=== PATIENT | female | born 1950 | race Caucasian/White ===

== ENCOUNTER 2020-09-20 09:22 | Outpatient (CLI) | payer MEDICARE, SELFPAY ==
--- NOTE | ~2020-09-20 | MM_ITS ---
EXAMINATION: MM screening [facility] BI w jackie HISTORY: Screening mammogram TECHNIQUE: Craniocaudal and mediolateral oblique 3-D tomosynthesis images were obtained and synthetic 2-D images were generated. CAD analysis was submitted and interpreted. COMPARISON: 09/26/2014, 08/22/2011 BREAST PARENCHYMAL COMPOSITION: There are scattered areas of fibroglandular density. FINDINGS: An intramammary lymph node is noted in the outer right breast. There is no evidence of susp icious mass, calcification, or architectural distortion to suggest malignancy in either breast. There has been no suspicious interval change. IMPRESSION: 1. No mammographic evidence of malignancy. 2. Recommend routine screening mammography in one year. BI-RADS Category 2: Benign finding(s). Reviewed, dictated and finalized at location A.
== END 2020-09-20 09:23 | disposition home or self-care (01) ==
LOC: ANHIMG 09:27
PROVIDERS: PCP Physician Assistant; Visit Provider Physician Assistant
DX: Z12.31 Encounter for screening mammogram for malignant neoplasm of breast (principal)
CPT/HCPCS: 77063; 77067

== ENCOUNTER 2023-12-27 11:55 | Outpatient (CLI) | payer MEDICARE, SELFPAY ==
--- NOTE | ~2023-12-27 | XR_ITS ---
Left Knee Technique: AP, lateral, and sunrise views were obtained. Clinical History: Pain Findings: No fracture or dislocation is seen. There is advanced tricompartment osteoarthritis, joint space narrowing and osteophyte formation. There is generalized osteopenia.. Soft tissues are unremark able. No joint effusion is seen. Impression: Advanced tricompartmental osteoarthritis. Generalized osteopenia. Reviewed, dictated and finalized at location . Impression: Advanced tricompartmental osteoarthritis. Generalized osteopenia.
== END 2023-12-27 11:56 | disposition home or self-care (01) ==
PROVIDERS: PCP Physician Assistant; Visit Provider Physician Assistant
DX: M17.12 Unilateral primary osteoarthritis, left knee (principal); M85.88 Other specified disorders of bone density and structure, other site; W19.XXXD Unspecified fall, subsequent encounter
CPT/HCPCS: 73562

== ENCOUNTER 2024-04-06 17:45 | Observation (INO) | payer MEDICARE, SELFPAY ==
[2024-04-06] VITALS (10 sets, daily range): BP systolic 86–113; BP diastolic 53–90; PULSE 71–89; RESP 19–44; O2SAT 97–100
--- NOTE | ~2024-04-06 | CT_ITS ---
EXAMINATION: CTA brain carotid DATE: 04/06/2024 19:13 INDICATION: Altered mental status. Slurred speech. TECHNIQUE: Computed tomographic angiography (CTA) of the head was performed without and with 100 mL O mnipaque-350 intravenous contrast. CTA of the neck was performed with intravenous contrast. Automated exposure control and iterative reconstruction technique were employed. The dose-length product was 1 511.15 mGy-cm. Maximum intensity projection and volume rendered 3D-reconstructions were created by ha almaguer technologist on a separate workstation. COMPARISON: Head CT 12/23/2012 FINDINGS: HEAD CTA: There are old infarcts involving the bilateral basal ganglia and left thalamus. There are s cattered areas of low attenuation in the cerebral white matter. There is no intracranial hemorrhage, acute infarction, or abnormal intracranial mass lesion. There is an old infarct in right cerebellum. The ventricles are normal in size. There are likely changes of ocular lens replacement surgeries. The paranasal sinuses are clear. The mastoid air cells are normal. Left vertebral artery is dominant. Th ere is no significant stenosis of basilar artery or the posterior cerebral arteries. There is no sign ificant stenosis of the intracranial internal carotid arteries or anterior or middle cerebral arterie s. Anterior communicating artery is normal. The posterior communicating arteries are normal. There is no aneurysm. NECK CTA: The lung apices demonstrate emphysema. There is mild scarring at the lung apices. There are no pathologically enlarged lymph nodes. There is no significant stenosis of the vertebral arteries. There is plaque in the proximal internal carotid arteries. There is 0% stenosis of the proximal right internal carotid artery relative to normal distal artery lumen diameter (NASCET criteria). There is 0% stenosis of the proximal left internal carotid artery relative to normal distal artery lumen diame ter. There is severe cervical spondylosis. IMPRESSION: 1. 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 2. Extensive nonspecific cerebral white matter disease, which likely represents chronic small vessel ischemic disease. 3. No aneurysm or significant intracranial arterial stenosis. 4. 0% stenosis of the proximal internal carotid arteries relative to normal distal artery lumen diame ters (NASCET criteria). Reviewed, dictated and finalized at location A. IMPRESSION: 1. 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 2. Extensive nonspecific cerebral white matter disease, which likely represents chronic small vessel ischemic disease. 3. No aneurysm or significant intracranial arterial stenosis. 4. 0% stenosis of the proximal internal carotid arteries relative to normal dis gricelda artery lumen diameters (NASCET criteria).
--- NOTE | ~2024-04-06 | MR_ITS ---
EXAMINATION: MR brain/brain stem wo/w con DATE: 04/07/2024 07:59 INDICATION: Altered mental status. Right upper and lower extremity drift. TECHNIQUE: Magnetic resonance imaging (MRI) of the brain and brainstem was performed without and with 10 mL Multihance intravenous contrast. Sequences included sagittal and axial T1-weighted SE, axial d iffusion-weighted FS SE, axial 3D SWAN, axial T2-weighted FLAIR, and axial T2-weighted FSE. Postcontr ast axial and coronal T1-weighted SE was obtained. Apparent diffusion coefficient (ADC) maps were cre ated. COMPARISON: Head CT and CT angiogram dated 04/06/2024 FINDINGS: There are no areas of restricted diffusion to suggest acute infarction. There are small old lacunar i nfarcts at the left thalamus, bilateral basal ganglia, periventricular left parietal occipital region and right cerebellar hemisphere. No acute intracranial hemorrhage or abnormal intracranial mass lesi on. There is a punctate focus of susceptibility artifact at the left thalamus likely sequela of chron ic microhemorrhage. There are scattered areas of nonspecific increased T2-weighted signal intensity i n the cerebral white matter, predominantly involving the deep and periventricular white matter. There are no intraparenchymal signal abnormalities seen on the other pulse sequences. The ventricles are s ymmetric and normal in size. There are no abnormal extra-axial fluid collections. Flow voids are seen in the cerebral arteries on the T2-weighted sequences consistent with their expected patency. Change s of bilateral intraocular lens replacement. Visualized orbits and soft tissues are unremarkable. Min imal bilateral mastoid effusions. There are no areas of abnormal enhancement on the post contrast lester ges. IMPRESSION: 1. There are a few scattered small old lacunar infarcts including at the left thalamus, bilateral bas al ganglia, left proximal pole region and right cerebellar hemisphere. No acute intracranial process or abnormally enhancing brain lesions. 2. Extensive scattered nonspecific periventricular predominant white matter T2 hyperintensity consist ent with chronic small vessel ischemic disease. Reviewed, dictated and finalized at location A. IMPRESSION: 1. There are a few scattered small old lacunar infarcts including at the left t halamus, bilateral basal ganglia, left proximal pole region and right cerebella r hemisphere. No acute intracranial process or abnormally enhancing brain lesio ns. 2. Extensive scattered nonspecific periventricular predominant white matter T2 hyperintensity consistent with chronic small vessel ischemic disease.
--- NOTE | ~2024-04-06 | XR_ITS ---
EXAMINATION: XR chest 1V portable DATE: 04/06/2024 19:03 INDICATION: Cough. Confusion. TECHNIQUE: A single frontal view of the chest was obtained. COMPARISON: None. FINDINGS: There are lucencies and interstitial opacities in the lungs, consistent with emphysema. No pleural effusion or pneumothorax. The heart size is normal. IMPRESSION: 1. Emphysema. Reviewed, dictated and finalized at location A. IMPRESSION: 1. Emphysema.
--- NOTE | 2024-04-06 17:59 | ECG_ITS ---
Test Date: 2024-04-06 17:56:56 Measurements Intervals Orange Rate: 85 P: 52 RI: 154 QRS: 62 QRSD: 74 T: 50 QT: 331 QTc: 394 Interpretive Statements SINUS RHYTHM No previous ECG available for comparison Electronically Signed On 04-07-2024 16:16:27 CDT by Иван Manning M.D.
--- NOTE | 2024-04-06 18:19 | ED.AMS ---
HPI - Altered Mental Status General Chief Complaint: Altered Mental Status <HARLEY Walters Last Filed: 04/07/24 01:12> Stated Complaint: AMS, expressive aphasia <HARLEY Walters Last Filed: 04/07/24 01:12> Time Seen by Provider: 04/06/24 18:18 <HARLEY Walters Last Filed: 04/07/24 01:12> Source: patient <HARLEY Walters Last Filed: 04/07/24 01:12> Mode of arrival: ambulatory <HARLEY Walters Last Filed: 04/07/24 01:12> Limitations: no limitations <HARLEY Walters Filed: 04/07/24 01:12> History of Present Illness HPI narrative: This is a 74-year-old female who presents to the ED via EMS for chief complaint of altered mental status and disturbed speech. Beginning approximately 2 hours prior to arrival. Patient's family is here and states that they left for work around 3:00 p.m. today. States that a different family member called her about an hour and half later and thought that her speech was slurred and patient seemed disoriented. On arrival she is alert oriented x2 is normally A&O x4. Family states that she seems confused and unable to answer some other questions like she normally would. They have not noticed specific facial droop but feels that her speech has slurred and she has aphasia. Patient unable to give meaningful history <HARLEY Walters Last Filed: 04/07/24 01:12> Related Data Home Medications: Home Medications Medication Instructions Recorded Confirmed No Home Medications 04/06/24 04/06/24 <HARLEY Walters Last Filed: 04/07/24 01:12> Allergies/Adverse Reactions: Allergies Allergy/AdvReac Type Severity Reaction Status Date / Time No Known Allergies Allergy Unverified 12/23/12 00:37 <HARLEY Walters Last Filed: 04/07/24 01:12> Review of Systems Review of Systems: ROS unobtainable: Yes unobtainable due to mental status <HARLEY Walters Filed: 04/07/24 01:12> [facility] Family History Family History: Family History (Updated 04/06/24 @ 23:46 by Nancy Nichols RN) Father Heart attack <HARLEY Walters Filed: 04/07/24 01:12> Social History Social History: Social History Smoking packs per day: 0.5 Smoking cigarettes per day: 10.0 Years smoked: 54 Smoking pack-years: 27.00 Smoking status: Current every day smoker Alcohol intake: former Substance use: never Do You Feel Safe in your Home?: No Lack of Transportation: No Lack of Food: Never True Current Housing: I Have Housing Concerned About Future Housing: No Difficulty Paying Gas/Electric Bills: No Difficulty Paying for Meds: No Currently Unemployed: No Education: High School Diploma/GED Difficulty w/ Childcare or Family Care: No Spiritual care concerns: No <HARLEY Walters Filed: 04/07/24 01:12> Exam Narrative: GENERAL: Well-appearing, well-nourished, and in no acute distress. HEAD: Normocephalic, atraumatic. EYES: PERRLA and EOMI. ENT: Nares clear, no rhinorrhea or epistaxis. Mucous membranes moist. Oropharynx without tonsillar hypertrophy exudate or other lesions. NECK: Supple. No adenopathy or masses. CHEST: No respiratory distress. Clear to auscultation. No wheezes rales or rhonchi. 99% room air. breath sounds shallow with prolonged expiratory phase. HEART: Regular rate and rhythm. No murmur heard. Normal peripheral pulses. ABDOMEN: Soft, nontender, nondistended, normal active bowel sounds. MSK: Normal range of motion. No edema. SKIN: Warm, dry, no rash. NEURO: Alert and oriented x 1-2. Oriented to self and place. Pronator drift detected in the right upper and right lower extremities. No facial droop. Minimal dysarthria but patient does have expressive aphasia. Unable to participate with [id number] or [id number]. Insulator Tester strength equal bilaterally. No nystagmus PSYCH: Normal mood and affect. <HARLEY Walters
[2024-04-06 18:29] LABS: Basophils Absolute Auto 0.1 K/mm3 (0.0-0.1); Basophils Percent Auto 1.1 % (0.2-1.2); Eosinophils Absolute Auto 0.1 K/mm3 (0-0.3); Eosinophils Percent Auto 1.6 % (0-4.4); Hematocrit 36.2 % (37.0-47.0); Hemoglobin 11.8 g/dL (12.0-15.0); Immature Granulocyte Absolute 0.01 K/mm3 (0.00-0.031); Immature Granulocyte Percent A 0.2 % (0-0.5); Lymphocytes Absolute Auto 1.93 K/mm3 (0.9-3.2); Lymphocytes Percent Auto 34.2 % (18.3-44.2); Mean Corpuscular HGB Conc 32.6 g/dl (32-36); Mean Corpuscular Hemoglobin 33.4 pg (26-34); Mean Corpuscular Volume 102.5 fl (80-100); Mean Platelet Volume 10.8 fl (7.4-10.4); Monocytes Absolute Auto 0.5 K/mm3 (0.1-0.6); Monocytes Percent Auto 8.8 % (2.6-8.5); Neutrophils Absolute Auto 3.1 K/mm3 (1.3-6.7); Neutrophils Percent Auto 54.1 % (45.5-73.1); Platelet Count Result 216 k/mm3 (150-375); Red Blood Count 3.53 M/mm3 (4.2-5.4); Red Cell Distribution Width 13.1 % (11.5-14.5); White Blood Count 5.7 K/mm3 (4.5-10.0)
[2024-04-06 18:40] LABS: Alanine Aminotransferase 8 U/L (6-35); Albumin Level 3.5 g/dL (3.5-5.1); Alkaline Phosphatase 86 U/L (38-126); Anion Gap 3 mmol/L (4-12); Aspartate Amino Transferase 21 U/L (14-36); Bilirubin,Total 0.5 mg/dL (0.2-1.3); Blood Urea Nitrogen 8 mg/dL (7-17); Calcium 8.4 mg/dL (8.4-10.2); Carbon Dioxide 29 mmol/L (22-30); Chloride 105 mmol/L (98-107); Estimated CRCL calculation 38 ml/min; Estimated Glomerular Filt Rate > 60; Glucose 86 mg/dL (65-110); INR 1.1; Partial Thromboplastin Time 26.8 Seconds (22.3-36.8); Prothrombin Time 14.5 Seconds (11.1-14.7); Sodium 137 mmol/L (137-145)
[2024-04-06 19:14] LABS: Add Urine Microscopic? YES; Appearance Urine Cloudy (Clear); Bacteria Urine 1+ /hpf; Bilirubin Urine Negative (Negative); Blood Urine Negative (Negative); Color Urine Yellow (Yellow); Glucose Urine UA Negative (Negative); Ketones Urine Trace mg/dL (Negative); Leukocyte Esterase Ur 3+ LEU/UL (Negative); Need Manual Microscopic Reviewed; Nitrate Urine Negative (Negative); Non Pathogenic Casts 0-2; Protein Urine Negative (Negative); RBC Urine 0-2 /hpf (0-2); Specific Grav Ur 1.019 (1.001-1.035); Squamous Epithelial Cell Urine None Seen /hpf (Few); WBC Urine >100 /hpf (0-3)
--- NOTE | 2024-04-06 19:46 | PCRCNOTE ---
RT to room, PA speaking to pt/family. RT asked if abg is still wanted, PA said to hold off for now.
[2024-04-06] MEDS: IPRATROPIUM BR 0.02% INH SOLN 0.5 MG/2.5 ML VIAL 1 MG INHALATION (20:15)
[2024-04-06] MEDS: ALBUTEROL SULFATE NEB 2.5 MG/3 ML INH 10 MG INHALATION (20:15)
[2024-04-06 20:52] LABS: Alveolar/Arterial O2 Gradient 37.3 mmHg; Base Excess ABG -2.1 mEq/l (+/-2.0); Fractional Inspired Oxygen 21 %; HCO3 ABG 22.1 mEq/l (22.0-26.0); Oxygen Content ABG 14.8 %vol (16.0-22.0); Oxygen Saturation ABG 94.3 % (95.0-100.0); Oxyhemoglobin 93.1 % THb (90.0-100.0); PCO2 ABG 35.7 mmHg (35.0-45.0); PO2 ABG 69.7 mmHg (80.0-100.0); PO2 FiO2 Ratio Arterial Blood 3.32 %; Total Hemoglobin 11.3 g/dL (12.0-18.0)
--- NOTE | 2024-04-06 20:52 | PM.IMHP ---
H&P: HPI History of Present Illness Date/Time: 04/06/24 20:52 Chief Complaint: right upper extremity weakness Narrative: This is a 74-year-old female with past medical history Significant for strokes, was brought to the emergency room for evaluation due to altered mental status limb weakness abnormal speech. preliminary workup here in emergency room showed old strokes it was believed that patient was undergoing a stroke and stroke team was consulted advised for tPA however it was later found out that patient has had symptoms since earlier in the evening of the day before so he had been at least 18 hours since initial symptoms. It was decided against tPA. A urinalysis showed numerous WBCs present. Patient has been admitted for further evaluation management and treatment. XAMINATION: XR chest 1V portable DATE: 04/06/2024 19:03 INDICATION: Cough. Confusion. TECHNIQUE: A single frontal view of the chest was obtained. COMPARISON: None. FINDINGS: There are lucencies and interstitial opacities in the lungs, consistent with emphysema. No pleural effusion or pneumothorax. The heart size is normal. IMPRESSION: 1. Emphysema. EXAMINATION: CTA brain carotid DATE: 04/06/2024 19:13 INDICATION: Altered mental status. Slurred speech. TECHNIQUE: Computed tomographic angiography (CTA) of the head was performed without and with 100 mL Omnipaque-350 intravenous contrast. CTA of the neck was performed with intravenous contrast. Automated exposure control and iterative reconstruction technique were employed. The dose-length product was 1511.15 mGy-cm. Maximum intensity projection and volume rendered 3D-reconstructions were created by the technologist on a separate workstation. COMPARISON: Head CT 12/23/2012 FINDINGS: HEAD CTA: There are old infarcts involving the bilateral basal ganglia and left thalamus. There are scattered areas of low attenuation in the cerebral white matter. There is no intracranial hemorrhage, acute infarction, or abnormal intracranial mass lesion. There is an old infarct in right cerebellum. The ventricles are normal in size. There are likely changes of ocular lens replacement surgeries. The paranasal sinuses are clear. The mastoid air cells are normal. Left vertebral artery is dominant. There is no significant stenosis of basilar artery or the posterior cerebral arteries. There is no significant stenosis of the intracranial internal carotid arteries or anterior or middle cerebral arteries. Anterior communicating artery is normal. The posterior communicating arteries are normal. There is no aneurysm. NECK CTA: The lung apices demonstrate emphysema. There is mild scarring at the lung apices. There are no pathologically enlarged lymph nodes. There is no significant stenosis of the vertebral arteries. There is plaque in the proximal internal carotid arteries. There is 0% stenosis of the proximal right internal carotid artery relative to normal distal artery lumen diameter (NASCET criteria). There is 0% stenosis of the proximal left internal carotid artery relative to normal distal artery lumen diameter. There is severe cervical spondylosis. IMPRESSION: 1. 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 2. Extensive nonspecific cerebral white matter disease, which likely represents chronic small vessel ischemic disease. 3. No aneurysm or significant intracranial arterial stenosis. 4. 0% stenosis of the proximal internal carotid arteries relative to normal distal artery lumen diameters (NASCET criteria). Review of Systems Review of Systems: altered mental status ROS unobtainable: Yes other ( patient has no recollection of event) [facility] Social History Social History Smoking packs per day: 0.5 Smoking cigarettes per day: 10.0 Years smoked: 54 Smoking pack-years: 27.00 Smoking status: Current every day smoker Alcohol intake: never Substance use: never Do You Fe
[2024-04-06 20:53] LABS: Device ROOM AIR; Site Drawn RIGHT BRACHIAL
[2024-04-06 21:13] LABS: NT Pro B Type Natriuretic Pept 554 pg/mL (19.9-100)
[2024-04-06] MEDS: ASPIRIN 81 MG CHEWABLE TABLET PO (22:03)
[2024-04-06] MEDS: SODIUM CHLORIDE 0.9% IV 1,000 ML 999 ML IV CONT (22:03)
[2024-04-06] MEDS: ATORVASTATIN 40 MG TABLET PO (22:03)
[2024-04-06] MEDS: CLOPIDOGREL BISULFATE 300 MG TABLET PO (22:03)
--- NOTE | 2024-04-06 23:20 | ADMGEN ---
This patient, Leisa Anderson, was admitted to Medical Room 346-01 @ 2300. Patient/family oriented to hospital policies and general routines including ID bracelet, bed and alarms, visiting hours, pain management, procedures, bathroom and other care routines, personal items, smoking policy, room service/diet, and visiting hours. Information on how to activate the Rapid Response Team has been discussed. Patient/Family are encouraged to report perceived risks to care and to ask questions if they do not understand what they are told or what they should do.
[2024-04-06] MEDS: SODIUM CHLORIDE 0.9% IV 1,000 ML 125 ML IV CONT (23:40)
[2024-04-07] VITALS (10 sets, daily range): BP systolic 96–117; BP diastolic 40–84; PULSE 77–90; RESP 18–32; TEMP 36.2–36.8; O2SAT 98–100
--- NOTE | 2024-04-07 | ECHO_ITS ---
Patient Info Name: Leisa Anderson Age: 74 years : 1950 Gender: Female Ht: 61 in Wt: 125 lbs BSA: 1.57 m2 HR: 88 bpm BP: 98 / 65 mmHg Heart Rhythm: Sinus Rhythm Technical Quality: Good Exam Date: 04/07/2024 8:52 AM Exam Location: Echo Lab Patient Status: Inpatient Admit Date: 04/06/2024 Staff Ordering Physician: Kenneth Jones MD Stripper Latex: Yoshi Ford RDCS Attending Provider: Christopher Balderrama MD Exam Type: CA echo doppler w bubble study Study Info Indications - stroke Complete two-dimensional, color flow and Doppler transthoracic echocardiogram is performed with agitated saline. Summary 1. Left ventricular systolic function is normal, estimated at 55-60%. 2. The left ventricular diastolic function is abnormal. 3. Intact interatrial septum visualized by agitated saline imaging. 4. There is trace tricuspid valve regurgitation. 5. No pulmonary hypertension, estimated pulmonary arterial systolic pressure is 27 mmHg. Left Ventricle Left ventricular chamber dimension is normal. Left ventricular systolic function is normal, estimated at 55-60%. There is no increased left ventricular wall thickness. Left ventricular septal wall motion is normal. The left ventricular diastolic function is abnormal. Right Ventricle Right ventricular chamber dimension is normal. Right ventricular systolic function is normal. Left Atria Left atrial chamber dimension is normal. Right Atria Right atrial chamber dimension is normal. Atrial Septum Intact interatrial septum visualized by agitated saline imaging. Aortic Valve The aortic valve is trileaflet. There is no aortic valve sclerosis. There is no aortic valve stenosis. There is no aortic valve regurgitation. Pulmonic Valve The pulmonic valve is normal. There is no pulmonic valve stenosis. There is no pulmonic regurgitation. Mitral Valve The mitral valve has normal leaflets. There is no mitral valve stenosis. There is no mitral valve regurgitation. Tricuspid Valve The tricuspid valve leaflets are normal. There is no significant tricuspid valve stenosis. There is trace tricuspid valve regurgitation. No pulmonary hypertension, estimated pulmonary arterial systolic pressure is 27 mmHg. Pericardium/Pleural The pericardium appears normal. There is no pericardial effusion. Inferior Vena Cava Dilated inferior vena cava with <50% collapse upon inspiration consistent with elevated right atrial pressure, 15 mmHg. Aorta The aortic root size at the sinus of Valsalva is normal. The prox ascending aorta size is normal. Left Ventricular Outflow Tract Name Value Normal LVOT 2D LVOT Diameter 2.0 cm LVOT Doppler LVOT Peak Gradient 2 mmHg LVOT Mean Gradient 1 mmHg LVOT VTI 15 cm LVOT VTI/AV VTI Ratio 0.9 LVOT Stroke Volume 46 ml LVOT CO 3.6 l/min LVOT CI 2.3 l/min/m2 Mitral Valve Name Value Normal
[2024-04-07] MEDS: SODIUM CHLORIDE 0.9% IV 1,000 ML 125 ML IV CONT ×2 (06:11→18:24)
[2024-04-07] MEDS: CLOPIDOGREL BISULFATE 75 MG TABLET PO (08:49)
[2024-04-07 10:37] LABS: Cholesterol 164 mg/dL (0-200); HDL Direct 40 mg/dL; Triglycerides 91 mg/dL (<150)
[2024-04-07 10:40] LABS: Hemoglobin A1C 5.1 % (<5.7)
[2024-04-07 10:48] LABS: LDL Cholesterol Direct 96 mg/dL
--- NOTE | 2024-04-07 11:39 | PM.IMPN ---
Progress Note: A&P Assessment and Plan (1) Altered mental status: Code(s): R41.82 - Altered mental status, unspecified Status: Acute Assessment and Plan: Per HPI patient was noted to have AMS and limb weakness, appears to have resolved today Resolved and oriented x3 today non focal exam MRi no acute infarct ECHO pending CTA head and neck images unremarkable neurology consulted awaiting PT/OT eval (2) Urinary tract infection: Code(s): N39.0 - Urinary tract infection, site not specified Status: Acute Assessment and Plan: started on Rocephin await cultures Plan DVT prophylaxis on Sq [place] Subjective Date/time seen: 04/07/24 11:39 Interval history: Comfortable at bedside, alert and oriented x 3, and reported no focal weakness MRI brain showed multiple lacunar infarct Review of Systems Review of Systems: altered mental status ROS unobtainable: Yes other ( patient has no recollection of event) Objective Data Vital Signs Vital Signs: Vital Signs - 24 hr 04/06/24 17:46 04/06/24 17:55 04/06/24 18:01 Temperature Pulse Rate 85 85 Respiratory Rate 21 H 20 Blood Pressure 113/65 110/90 Pulse Oximetry 100 97 Oxygen Delivery Room Air Fraction of Inspired Oxygen 04/06/24 18:02 04/06/24 18:15 04/06/24 18:18 Temperature Pulse Rate 88 89 89 Respiratory Rate 44 H 27 H 34 H Blood Pressure 86/53 L Pulse Oximetry Oxygen Delivery Fraction of Inspired Oxygen 04/06/24 18:36 04/06/24 19:16 04/06/24 20:20 Temperature Pulse Rate 85 78 74 Respiratory Rate 29 H 32 H 19 Blood Pressure 113/56 L Pulse Oximetry 99 Oxygen Delivery Fraction of Inspired Oxygen 04/06/24 20:55 04/07/24 00:01 04/07/24 00:00 Temperature 97.1 F L Pulse Rate 71 85 85 Respiratory Rate 18 Blood Pressure 105/50 L Pulse Oximetry 99 100 Oxygen Delivery Room Air Fraction of Inspired Oxygen 21 04/07/24 04:00 04/07/24 06:00 Temperature 97.8 F Pulse Rate 89 88 Respiratory Rate 18 Blood Pressure 96/65 L Pulse Oximetry 99 Oxygen Delivery Fraction of Inspired Oxygen Intake/Output Intake/Output: Intake & Output 04/04/24 04/05/24 04/06/24 04/07/24 23:59 23:59 23:59 23:59 Intake Total 1050 1054.6 Output Total 25 700 Balance 1025 354.6 Meds/Results Medications: Active Medications Generic Name Dose Route Start Last Admin Trade Name Freq PRN Reason Stop Dose Admin Acetaminophen 650 mg 04/06/24 20:26 Acetaminophen 325 Mg Tablet PO Q4H PRN Mild Pain (1-3) or Fever Clopidogrel Bisulfate 75 mg 04/07/24 09:00 04/07/24 08:49 Clopidogrel Bisulfate 75 Mg Tablet PO 75 mg QAM GONZALO Administration Sodium Chloride 1,000 mls @ 125 mls/hr 04/06/24 20:30 04/07/24 06:11 Normal Saline Iv IV CONT 125 mls/hr .Q8H GONZALO Administration Ondansetron HCl 4 mg 04/06/24 20:26 Ondansetron Inj 4 Mg/2 Ml Vial IV PUSH Q4H PRN Nausea Perflutren Lipid Microsphere 0 ml 04/07/24 07:37 Perflutren Lipid Microspheres 1.5 Ml Vial Diluted To 10 Ml Total Volume IV PUSH 04/10/24 07:37 ONCE PRN adequate visualization Protocol Radiology Results: ITS Impressions Chest X-Ray 04/06/24 19:05 IMPRESSION: 1. Emphysema. Head/Neck CTA 04/06/24 19:14 IMPRESSION: 1. 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 2. Extensive nonspecific cerebral white matter disease, which likely represents chronic small vessel ischemic disease. 3. No aneurysm or significant intracranial arterial stenosis. 4. 0% stenosis of the proximal internal carotid arteries relative to normal distal artery lumen diameters (NASCET criteria). Brain MRI 04/07/24 08:03 IMPRESSION: 1. There are a few scattered small old lacunar infarcts including at the left thalamus, bilateral basal ganglia, left proximal pole region and right cerebellar hemisphere.
--- NOTE | 2024-04-07 14:13 | WPDNEURCNPN ---
Consult date: 04/07/24 HPI: Leisa Anderson is a 74 year old female admitted to the hospital through the emergency room for the complaints of change in the mental status with expressive dysphasia of 2hours duration prior to the arrival to the ER on arrival in the emergency room she was awake alert oriented x4 though she seemed to be confused and was unable to answer the questions patient has not been taking any home medication, has not been allergic to any medication, currently everyday smoker with smoking pack years of 27 but former alcohol intake she was documented to have pronator drift of the right upper and right lower extremity with expressive aphasia vital signs were normal, CBC was normal, BMP was normal, and so as the mast scan and UA , EKG was normal, head neck CTA 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 Brain MRI documented only few scattered small old lacunar infarcts involving the left thalamus, bilateral basal ganglia, left proximal pole region and right cerebellar hemisphere but no other intracranial process and chest x-ray compatible with emphysema. Since admission echocardiogram has been ordered. The report at this stage is not available. [facility] Family History Family History (Updated 04/06/24 @ 23:46 by Nancy Nichols RN) Father Heart attack Social History Social History Smoking packs per day: 0.5 Smoking cigarettes per day: 10.0 Years smoked: 54 Smoking pack-years: 27.00 Smoking status: Current every day smoker Alcohol intake: former Substance use: never Do You Feel Safe in your Home?: No Lack of Transportation: No Lack of Food: Never True Current Housing: I Have Housing Concerned About Future Housing: No Difficulty Paying Gas/Electric Bills: No Difficulty Paying for Meds: No Currently Unemployed: No Education: High School Diploma/GED Difficulty w/ Childcare or Family Care: No Spiritual care concerns: No Meds Home Medications and Allergies Home Medications Medication Instructions Recorded Confirmed Type No Home Medications 04/06/24 04/06/24 History Allergies Allergy/AdvReac Type Severity Reaction Status Date / Time No Known Allergies Allergy Unverified 12/23/12 00:37 Vital Signs Vital Signs - 24 hr 04/06/24 17:46 04/06/24 17:55 04/06/24 18:01 Temperature Pulse Rate 85 85 Respiratory Rate 21 H 20 Blood Pressure 113/65 110/90 Pulse Oximetry 100 97 Oxygen Delivery Room Air Fraction of Inspired Oxygen 04/06/24 18:02 04/06/24 18:15 04/06/24 18:18 Temperature Pulse Rate 88 89 89 Respiratory Rate 44 H 27 H 34 H Blood Pressure 86/53 L Pulse Oximetry Oxygen Delivery Fraction of Inspired Oxygen 04/06/24 18:36 04/06/24 19:16 04/06/24 20:20 Temperature Pulse Rate 85 78 74 Respiratory Rate 29 H 32 H 19 Blood Pressure 113/56 L Pulse Oximetry 99 Oxygen Delivery Fraction of Inspired Oxygen 04/06/24 20:55 04/07/24 00:01 04/07/24 00:00 Temperature 36.2 C L Pulse Rate 71 85 85 Respiratory Rate 18 Blood Pressure 105/50 L Pulse Oximetry 99 100 Oxygen Delivery Room Air Fraction of Inspired Oxygen 21 04/07/24 04:00 04/07/24 06:00 Temperature 36.6 C Pulse Rate 89 88 Respiratory Rate 18 Blood Pressure 96/65 L Pulse Oximetry 99 Oxygen Delivery Fraction of Inspired Oxygen Results Labs 04/06/24 18:23 04/06/24 18:23 Labs: Short CBC 04/06/24 Range/Units 18:23 WBC 5.7 (4.5-10.0) K/mm3 Hgb 11.8 L (12.0-15.0) g/dL Hct 36.2 L (37.0-47.0) % Plt Count 216 (150-375) k/mm3 BMP 04/06/24 18:23 Sodium 137 Potassium 4.0 Chloride 105 Carbon Dioxide 29 BUN 8 Creatinine 0.90 Glucose 86 Calcium 8.4 Liver Function 04/06/24 Range/Units 18:23 Total Bilirubin
--- NOTE | 2024-04-07 14:54 | WPDNEURCNPN ---
Assessment and Plan Assessment and plan (1) TIA (transient ischemic attack): Code(s): G45.9 - Transient cerebral ischemic attack, unspecified Status: Acute Plan 1. TIA 2. Possibility of focal unwitnessed seizure. An MRI of the brain has documented his small strokes in the past, if echocardiogram has not been don would be necessary and she can be continued on aspirin 75mg daily in addition to Plavix 75mg daily for the next 3 weeks also an EEG can be obtained. Consult date: 04/07/24 HPI: Leisa Anderson is a 74 year old female , admitted to the hospital through the emergency room for the complaints of change in the mental status with expressive dysphasia of 2hours duration, Prior to the arrival to the emergency room. On arrival in the emergency room she was awake alert oriented x4 though she has seem confused and was unable to answer the questions. Patient has not been taking any medication at home, has not been allergic to any medication, currently she is everyday smoker with smoking pack years of 27 but former alcohol intake ,and she was documented to have pronator drift of the right upper and right lower extremity with expressive aphasia,a though her vital signs were normal ,CBC was normal ,BMP was normal and so as the master scan and UA ,EKG was normal, head and neck CTA documented old infarct involving the both basal ganglia, left thalamus and right cerebellum with extensive nonspecific white matter changes but without any aneurysm or intracranial arterial stenosis. Brain MRI documented only few scattered small old lacunar infarcts involving the left thalamus bilateral basal ganglia left proximal pole region and right cerebellar hemisphere but no other intracranial processes and chest x-ray was compatible with emphysema. Since admission echocardiogram has been ordered the report at this stage is pending. Review of Systems Review of Systems: All systems reviewed & are unremarkable except as noted in HPI and below [facility] Family History Family History Father Heart attack Social History Social History Smoking packs per day: 0.5 Smoking cigarettes per day: 10.0 Years smoked: 54 Smoking pack-years: 27.00 Smoking status: Current every day smoker Alcohol intake: former Substance use: never Do You Feel Safe in your Home?: No Lack of Transportation: No Lack of Food: Never True Current Housing: I Have Housing Concerned About Future Housing: No Difficulty Paying Gas/Electric Bills: No Difficulty Paying for Meds: No Currently Unemployed: No Education: High School Diploma/GED Difficulty w/ Childcare or Family Care: No Spiritual care concerns: No Meds Home Medications and Allergies Home Medications Medication Instructions Recorded Confirmed Type No Home Medications 04/06/24 04/06/24 History Allergies Allergy/AdvReac Type Severity Reaction Status Date / Time No Known Allergies Allergy Unverified 12/23/12 00:37 Vital Signs Vital Signs - 24 hr 04/06/24 17:46 04/06/24 17:55 04/06/24 18:01 Temperature Pulse Rate 85 85 Respiratory Rate 21 H 20 Blood Pressure 113/65 110/90 Pulse Oximetry 100 97 Oxygen Delivery Room Air Fraction of Inspired Oxygen 04/06/24 18:02 04/06/24 18:15 04/06/24 18:18 Temperature Pulse Rate 88 89 89 Respiratory Rate 44 H 27 H 34 H Blood Pressure 86/53 L Pulse Oximetry Oxygen Delivery Fraction of Inspired Oxygen 04/06/24 18:36 04/06/24 19:16 04/06/24 20:20 Temperature Pulse Rate 85 78 74 Respiratory Rate 29 H 32 H 19 Blood Pressure 113/56 L Pulse Oximetry 99 Oxygen Delivery Fraction of Inspired Oxygen 04/06/24 20:55 04/07/24 00:01 04/07/24 00:00 Temperature 36.2 C L Pulse Rate 71 85 85 Respiratory Rate 18 Blood Pressure 105/50 L Pulse Oximetry 99 100 Oxygen Delivery Room A
[2024-04-08] VITALS: PULSE 76
[2024-04-08] MEDS: SODIUM CHLORIDE 0.9% IV 1,000 ML 125 ML IV CONT ×2 (01:07→08:45)
[2024-04-08 04:00] VITALS: PULSE 71
[2024-04-08 04:56] LABS: Basophils Percent Auto 0.8 % (0.2-1.2); Eosinophils Absolute Auto 0.1 K/mm3 (0-0.3); Eosinophils Percent Auto 2.1 % (0-4.4); Hematocrit 29.9 % (37.0-47.0); Hemoglobin 9.4 g/dL (12.0-15.0); Immature Granulocyte Absolute 0.02 K/mm3 (0.00-0.031); Immature Granulocyte Percent A 0.4 % (0-0.5); Lymphocytes Absolute Auto 2.06 K/mm3 (0.9-3.2); Lymphocytes Percent Auto 39.8 % (18.3-44.2); Mean Corpuscular HGB Conc 31.4 g/dl (32-36); Mean Corpuscular Hemoglobin 32.8 pg (26-34); Mean Corpuscular Volume 104.2 fl (80-100); Mean Platelet Volume 10.9 fl (7.4-10.4); Monocytes Absolute Auto 0.5 K/mm3 (0.1-0.6); Monocytes Percent Auto 9.1 % (2.6-8.5); Neutrophils Absolute Auto 2.5 K/mm3 (1.3-6.7); Neutrophils Percent Auto 47.8 % (45.5-73.1); Platelet Count Result 171 k/mm3 (150-375); Red Blood Count 2.87 M/mm3 (4.2-5.4); Red Cell Distribution Width 13.5 % (11.5-14.5); White Blood Count 5.2 K/mm3 (4.5-10.0)
[2024-04-08 05:07] LABS: Alanine Aminotransferase 6 U/L (6-35); Albumin Level 2.5 g/dL (3.5-5.1); Alkaline Phosphatase 78 U/L (38-126); Anion Gap 3 mmol/L (4-12); Aspartate Amino Transferase 18 U/L (14-36); Bilirubin,Total 0.3 mg/dL (0.2-1.3); Blood Urea Nitrogen 5 mg/dL (7-17); Calcium 7.6 mg/dL (8.4-10.2); Carbon Dioxide 22 mmol/L (22-30); Chloride 115 mmol/L (98-107); Estimated CRCL calculation 43 ml/min; Estimated Glomerular Filt Rate > 60; Glucose 76 mg/dL (65-110); Magnesium 1.9 mg/dL (1.6-2.3); Potassium 3.8 mmol/L (3.4-5.0); Sodium 140 mmol/L (137-145)
[2024-04-08 05:08] LABS: Lactic Acid Reflex 0.5 mmol/L (0.7-2.0)
[2024-04-08 06:00] VITALS: BP 159/61; PULSE 77; RESP 18; TEMP 36.6; O2SAT 99
[2024-04-08] MEDS: ENOXAPARIN 40 MG/0.4 ML SYRINGE SUB-Q (08:45)
[2024-04-08] MEDS: CLOPIDOGREL BISULFATE 75 MG TABLET PO (08:45)
--- NOTE | 2024-04-08 12:21 | PM.DS ---
DS: Admitting Diagnosis Discharge Date 04/08/24 Admitting Diagnosis AMS DS: Summary Hospital Course Hospital Course: This is a 74-year-old female with past medical history Significant for strokes, was brought to the emergency room for evaluation due to altered mental status limb weakness abnormal speech. preliminary workup here in emergency room showed old strokes it was believed that patient was undergoing a stroke and stroke team was consulted advised for tPA however it was later found out that patient has had symptoms since earlier in the evening of the day before so he had been at least 18 hours since initial symptoms. It was decided against tPA. A urinalysis showed numerous WBCs present. Patient mental status normalized the next day, CT head and MRI brain negative, ECHO showed normal LV function. PT/OT/ST evaluated and recommended no skilled needs. Urine culture negative and patient received 3 days of Rocephin. Neurology evaluated and recommended double antiplatelets for TIA. Patient will follow up with neurology for EEG outpatient. F/u with PCP in 3-5 days F/u with neurology in 1 -2 weeks. Assessment and Plan (1) Altered mental status: Code(s): R41.82 - Altered mental status, unspecified Status: Acute Assessment and Plan: Per HPI patient was noted to have AMS and limb weakness, appears to have resolved today Resolved and oriented x3 today non focal exam MRi no acute infarct ECHO normal lLV function CTA head and neck images unremarkable Neurology eval noted (2) Urinary tract infection: Code(s): N39.0 - Urinary tract infection, site not specified ruled out Status: Acute Assessment and Plan: started on Rocephin urine culture negative Completed 3 days of Rocephin F/u with PCP in 3-5 days F/u with neurology in 1-2 weeks Time Spent with Patient Time attestation: Total time spent providing and/or coordinating discharge services: DS: Data Data Completed and Pending Labs on day of discharge: Labs from last 24 hours 04/08/24 04:44 WBC 5.2 RBC 2.87 L Hgb 9.4 L Hct 29.9 L MCV 104.2 H MCH 32.8 MCHC 31.4 L RDW 13.5 Plt Count 171 MPV 10.9 H Immature Gran % (Auto) 0.4 Neut % (Auto) 47.8 Lymph % (Auto) 39.8 [place] % (Auto) 9.1 H Eos % (Auto) 2.1 Baso % (Auto) 0.8 Lymph # (Auto) 2.06 [place] # (Auto) 0.5 Eos # (Auto) 0.1 Baso # (Auto) 0.0 Abs Immat Gran (auto) 0.02 Absolute Neuts (auto) 2.5 Absolute Nucleated RBC 0.000 Nucleated RBC % 0.0 Sodium 140 Potassium 3.8 Chloride 115 H Carbon Dioxide 22 Anion Gap 3 L BUN 5 L Creatinine 0.80 Estim Creat Clear Calc 43 Estimated GFR > 60 Glucose 76 Lactic Acid 0.5 L Calcium 7.6 L Magnesium 1.9 Total Bilirubin 0.3 AST 18 ALT 6 Alkaline Phosphatase 78 Total Protein 5.0 L Albumin 2.5 L Preliminary micro results at discharge 04/06/24 22:07 Blood Culture - Preliminary Blood 04/06/24 22:07 Blood Culture - Preliminary Blood Discharge Plan Discharge Attending physician on discharge: Kenneth Jones Consulting providers: Donato Rodriguez; Johnie Moe Discharging Clinician: Kenneth Jones Anticipated Discharge Date/Time: 04/08/24 12:14 Patient Disposition: Home, Self-Care Activity: as tolerated Diet: as tolerated Discharge Instructions: Call neurology office for appointment in 2 weeks Patient Instructions: Antibiotic Form, How to Stop Smoking (DC) Stand Alone Forms: General Discharge Information Follow-up/Referrals: Rudolph,JOSETTE Lewis [Primary Care Provider] - (F/u with PCP in 3-5 days ) Johnie Moe MD [Physician] - (F/u with neurology in 1- 2 weeks ) Discharge Medications: New clopidogrel 75 mg Tablet 75 mg PO QAM 20 Days Qty: 20 0RF aspirin 81 mg capsule 81 mg PO DAILY Qty: 30 1RF atorvastatin [Lipitor] 20 mg tablet 20 mg PO HS 30 Days Qty: 30 2RF Date of admission: 04/06/24 20:26 Prim
== END 2024-04-08 12:35 | disposition home or self-care (01) ==
LOC: ANHED 18:40 → ANH3MED 04-07 01:02
PROVIDERS: Registered Nurse; Admitting Provider Internal Medicine; Emergency Provider Physician Assistant; PCP Physician Assistant; Visit Provider Internal Medicine
DX: G45.9 Transient cerebral ischemic attack, unspecified (principal); R29.706 NIHSS score 6; N39.0 Urinary tract infection, site not specified; F17.210 Nicotine dependence, cigarettes, uncomplicated; Z86.73 Personal history of transient ischemic attack (TIA), and cerebral infarction without residual deficits
CPT/HCPCS: 36415; 36600; 70496; 70498; 70553; 71045; 80053; 80061; 81001; 82805; 83036; 83605; 83735; 83880; 85018; 85025; 85610; 85730; 87040; 87086; 92523; 93005; 93306; 94640; 96361; 96365; 96372; 96375; 97161; 99285; A9270; A9577; G0378; J0696; J1650; J7030; Q9967